=== PATIENT | female | born 1995 | race Caucasian/White ===

== ENCOUNTER 2016-12-18 17:18 | Outpatient (CLI) | payer BC, OTHER ==
[2016-12-18 17:55] LABS: APPEARANCE,URINE SLIGHTLY-CLOUDY; BILIRUBIN,URINE NEGATIVE (NEGATIVE); GLUCOSE, URINE NEGATIVE (NEGATIVE); KETONES,URINE TRACE mg/dL (NEGATIVE); LEUKOCYTE ESTERASE,URINE TRACE (NEGATIVE); NITRITE,URINE NEGATIVE (NEGATIVE); PROTEIN,URINE NEGATIVE (NEGATIVE); URINE SPECIFIC GRAVITY 1.018; UROBILINOGEN,URINE NEGATIVE mg/dL (<2.0)
[2016-12-18 18:13] LABS: URINE BARBITURATES SCREEN NEGATIVE; URINE METHADONE SCREEN NEGATIVE; URINE OPIATES LOW NEGATIVE; URINE PHENCYCLIDINE SCREEN NEGATIVE
== END 2016-12-18 18:44 | disposition home or self-care (01) ==
LOC: LC 17:18
PROVIDERS: ATTEND Obstetrics & Gynecology
DX: O26.893 Other specified pregnancy related conditions, third trimester (principal); R10.9 Unspecified abdominal pain; M54.9 Dorsalgia, unspecified; Z3A.29 29 weeks gestation of pregnancy
CPT/HCPCS: 80307; 81001

== ENCOUNTER 2017-02-20 19:57 | Outpatient (CLI) | payer BC, OTHER ==
[2017-02-20 20:37] LABS: APPEARANCE,URINE CLEAR; BILIRUBIN,URINE NEGATIVE (NEGATIVE); GLUCOSE, URINE NEGATIVE (NEGATIVE); KETONES,URINE NEGATIVE (NEGATIVE); LEUKOCYTE ESTERASE,URINE NEGATIVE (NEGATIVE); NITRITE,URINE NEGATIVE (NEGATIVE); PROTEIN,URINE NEGATIVE (NEGATIVE); URINE SPECIFIC GRAVITY 1.002; UROBILINOGEN,URINE NEGATIVE mg/dL (<2.0)
[2017-02-20 21:18] LABS: URINE BARBITURATES SCREEN NEGATIVE; URINE METHADONE SCREEN NEGATIVE; URINE OPIATES LOW NEGATIVE; URINE PHENCYCLIDINE SCREEN NEGATIVE
--- NOTE | 2017-02-20 21:31 | Non Stress Test Report ---
Non Stress Test Datetime Report Generated by CPN: 02/20/2017 21:31 DEMOGRAPHIC Test Number: 1 EGA NST: 37.2 INDICATION Indication for Study: Ordered by Provider MONITORING Monitor Explained: Monitor Explained; Test Explained; Patient Verbalized Understanding Time on Monitor: 02/20/2017 20:20 Time off Monitor: 02/20/2017 21:17 NST Duration: 57 NST INTERVENTIONS NST Interventions: PO Hydration Physician Notified NST: Dr. Cortez BABY A: [id number] Movement : Present Contraction Frequency : irregular FHR Baseline : 120 Accelerations : 15X15 Decelerations : None Variability : Moderate 6-25bpm NST Review: Meets Criteria for Reactive NST NST Review and Verified By : FRANCHESCA KwokT Results: Reactive NST REPORT Report Trigger: Send Report
== END 2017-02-20 21:25 | disposition home or self-care (01) ==
LOC: LC 19:57
PROVIDERS: ATTEND Student in an Organized Health Care Education/Training Program
PROC: 4A1HXCZ Monitoring of Products of Conception, Cardiac Rate, External Approach (ICD-10-PCS; principal; 2017-02-20)
DX: O47.1 False labor at or after 37 completed weeks of gestation (principal); Z3A.37 37 weeks gestation of pregnancy
CPT/HCPCS: 59025; 80307; 81005

== ENCOUNTER 2017-02-22 09:59 | Outpatient (CLI) | payer BC, OTHER ==
--- NOTE | 2017-02-22 10:41 | Non Stress Test Report ---
Non Stress Test Datetime Report Generated by CPN: 02/22/2017 10:40 DEMOGRAPHIC EGA NST: 37.4 INDICATION Indication for Study: Ordered by Provider Indication for Study (NST) Other: nst VITAL SIGNS Temperature - NST: 98.3 MONITORING Monitor Explained: Monitor Explained; Test Explained; Patient Verbalized Understanding Time on Monitor: 02/22/2017 10:09 Time off Monitor: 02/22/2017 10:33 NST Duration: 24 NST INTERVENTIONS NST Interventions: PO Hydration; Reposition Patient BABY A: [id number] BABY A Movement : Present Contraction Frequency : 0 FHR Baseline : 140 Accelerations : 15X15 Decelerations : None Variability : Moderate 6-25bpm NST Review: Meets Criteria for Reactive NST NST Review and Verified By : Lm Morales RNC NST Results: Reactive NST REPORT Report Trigger: Send Report
== END 2017-02-22 10:30 | disposition home or self-care (01) ==
LOC: LC 09:59
PROVIDERS: ATTEND Student in an Organized Health Care Education/Training Program
PROC: 4A1HXCZ Monitoring of Products of Conception, Cardiac Rate, External Approach (ICD-10-PCS; principal; 2017-02-22)
DX: Z34.93 Encounter for supervision of normal pregnancy, unspecified, third trimester (principal); Z36 Encounter for antenatal screening of mother; Z3A.37 37 weeks gestation of pregnancy
CPT/HCPCS: 59025

== ENCOUNTER 2017-03-06 20:37 | Outpatient (CLI) | payer BC, OTHER ==
[2017-03-06 21:10] LABS: APPEARANCE,URINE CLEAR; BILIRUBIN,URINE NEGATIVE (NEGATIVE); GLUCOSE, URINE NEGATIVE (NEGATIVE); KETONES,URINE NEGATIVE (NEGATIVE); LEUKOCYTE ESTERASE,URINE TRACE (NEGATIVE); NITRITE,URINE NEGATIVE (NEGATIVE); PROTEIN,URINE NEGATIVE (NEGATIVE); URINE SPECIFIC GRAVITY 1.004; UROBILINOGEN,URINE NEGATIVE mg/dL (<2.0)
[2017-03-06 21:31] LABS: URINE BARBITURATES SCREEN NEGATIVE; URINE METHADONE SCREEN NEGATIVE; URINE OPIATES LOW NEGATIVE; URINE PHENCYCLIDINE SCREEN NEGATIVE
[2017-03-06] MEDS ORDERED: HYDROXYZINE PAMOATE 50 MG CAPSULE ONE (22:18)
--- NOTE | 2017-03-06 22:47 | Non Stress Test Report ---
Non Stress Test Datetime Report Generated by CPN: 03/06/2017 22:47 DEMOGRAPHIC EGA NST: 39.2 INDICATION Indication for Study: Other Indication for Study (NST) Other: LC MONITORING Monitor Explained: Monitor Explained; Test Explained; Patient Verbalized Understanding Time on Monitor: 03/06/2017 20:56 Time off Monitor: 03/06/2017 21:26 NST Duration: 30 NST INTERVENTIONS NST Interventions: PO Hydration; Reposition Patient Physician Notified NST: Dr Neilsen BABY A: [id number] BABY A Movement : Present Contraction Frequency : 7-11 FHR Baseline : 140 Accelerations : 15X15 Decelerations : None Variability : Moderate 6-25bpm NST Review: Meets Criteria for Reactive NST NST Review and Verified By : FRANCHESCA Carlson Results: Reactive NST REPORT Report Trigger: Send Report
== END 2017-03-06 22:24 | disposition home or self-care (01) ==
LOC: LC 20:37
PROVIDERS: ATTEND Specialist
DX: O47.1 False labor at or after 37 completed weeks of gestation (principal); Z3A.39 39 weeks gestation of pregnancy
CPT/HCPCS: 80307; 81005

== ENCOUNTER 2017-03-08 17:26 | Inpatient (IN) | payer BC, OTHER ==
[2017-03-08] MEDS ORDERED: DINOPROSTONE 10 MG VAGINAL INSERT.SR PV PRN (17:48)
[2017-03-08] MEDS ORDERED: RINGERS SOLUTION,LACTATED 1,000 ML IV PRN (17:48)
[2017-03-08] MEDS ORDERED: RINGERS SOLUTION,LACTATED 300 ML IV ONE (17:48)
[2017-03-08] MEDS ORDERED: OXYTOCIN/NORMAL SALINE 1,000 ML IV PRN (17:48)
[2017-03-08 18:24] LABS: ABSOLUTE EOSINOPHILS # (AUTO) 0.1 10^3/uL (0.0-0.6); ABSOLUTE LYMPHOCYTES (AUTO) 1.6 10^3/uL (0.5-4.7); ABSOLUTE MONOCYTES (AUTO) 1.2 10^3/uL (0.1-1.4); ABSOLUTE NEUT (AUTO) 11.9 10^3/uL (1.7-8.2); BASOPHILS % (AUTO) 0.1 % (0-2); EOSINOPHILS % (AUTO) 0.5 % (0-6); HEMATOCRIT 33.4 % (36.0-47.0); HEMOGLOBIN 11.1 g/dL (12.0-15.5); HGB HCT DIFFERENCE -0.1; LYMPHOCYTES % (AUTO) 10.9 % (13-45); MEAN CORPUSCULAR HEMOGLOBIN 30.6 pg (27.0-33.4); MEAN CORPUSCULAR HGB CONC 33.2 g/dL (32.0-36.0); MEAN CORPUSCULAR VOLUME 92 fl (80-97); MONOCYTES % (AUTO) 8.2 % (3-13); RED BLOOD COUNT 3.62 10^6/uL (3.72-5.28); RED CELL DISTRIBUTION WIDTH 12.9 % (11.5-14.0); SEGMENTED NEUTROPHILS % (AUTO) 80.3 % (42-78); WHITE BLOOD COUNT 14.8 10^3/uL (4.0-10.5)
[2017-03-08 18:32] LABS: APPEARANCE,URINE SLIGHTLY-CLOUDY; BILIRUBIN,URINE NEGATIVE (NEGATIVE); GLUCOSE, URINE NEGATIVE (NEGATIVE); KETONES,URINE NEGATIVE (NEGATIVE); LEUKOCYTE ESTERASE,URINE SMALL (NEGATIVE); NITRITE,URINE NEGATIVE (NEGATIVE); PROTEIN,URINE NEGATIVE (NEGATIVE); URINE SPECIFIC GRAVITY 1.011; UROBILINOGEN,URINE NEGATIVE mg/dL (<2.0)
[2017-03-08] MEDS ORDERED: DINOPROSTONE 10 MG VAGINAL INSERT.SR ONE (18:32)
[2017-03-08 18:53] LABS: URINE BARBITURATES SCREEN NEGATIVE; URINE METHADONE SCREEN NEGATIVE; URINE OPIATES LOW NEGATIVE; URINE PHENCYCLIDINE SCREEN NEGATIVE
[2017-03-08] MEDS ORDERED: ZOLPIDEM TARTRATE 5 MG TABLET ONE (22:18)
[2017-03-08] MEDS ORDERED: ZOLPIDEM TARTRATE 5 MG TABLET PO ONE (22:30)
[2017-03-09] MEDS ORDERED: NALBUPHINE HCL INJ 10 MG/1 ML AMPULE INJ ONE (02:13)
[2017-03-09] MEDS ORDERED: PROMETHAZINE HCL INJ 25 MG/1 ML VIAL IV ONE (02:13)
[2017-03-09] MEDS ORDERED: PROMETHAZINE HCL INJ 25 MG/1 ML VIAL ONE (02:19)
[2017-03-09] MEDS ORDERED: NALBUPHINE HCL INJ 10 MG/1 ML AMPULE ONE (02:19)
[2017-03-09] MEDS ORDERED: MISOPROSTOL 0.2 MG TABLET ONE (04:30)
[2017-03-09] MEDS ORDERED: OXYTOCIN/NORMAL SALINE 20 UNIT/1,000 ML RTUINJ ONE (04:30)
[2017-03-09] MEDS ORDERED: LIDOCAINE 1% INJ-PF (10 MG/ML) 30 ML SDV ONE (04:30)
[2017-03-09] MEDS ORDERED: FENTANYL/BUPIVACAINE/NS/PF 200 MCG/100 ML RTUINJ EPI ONE (04:31)
[2017-03-09] MEDS ORDERED: EPHEDRINE SULFATE INJ 50 MG/1 ML AMPULE ONE (04:31)
[2017-03-09] MEDS ORDERED: BUPIVACAINE HCL 0.25 % INJ/PF (2.5 MG/1 ML) 30 ML VIAL ONE (04:31)
[2017-03-09] MEDS ORDERED: BUPIVACAINE HCL 0.25 % INJ/PF (2.5 MG/1 ML) 30 ML VIAL INFIL ONE (06:25)
[2017-03-09] MEDS ORDERED: EPHEDRINE SULFATE INJ 50 MG/1 ML AMPULE IV PRN (06:25)
[2017-03-09] MEDS ORDERED: EPHEDRINE SULFATE INJ 50 MG/1 ML AMPULE IV ONE (06:25)
[2017-03-09] MEDS ORDERED: FENTANYL/BUPIVACAINE/NS/PF 100 ML EPI PRN (06:25)
[2017-03-09] MEDS ORDERED: BENZOIN/ALOE VERA/STORAX/TOLU TINCTURE 60 ML TP PRN (06:25)
[2017-03-09] MEDS ORDERED: MEASLES,MUMPS&RUBELLA VACC/PF 0.5 ML VIAL SUBCUT PRN (10:34)
[2017-03-09] MEDS ORDERED: DIBUCAINE 1% OINTMENT 28 GM TP PRN (10:34)
[2017-03-09] MEDS ORDERED: ACETAMINOPHEN WITH CODEINE #3 TABLET PO PRN ×2 (10:34)
[2017-03-09] MEDS ORDERED: OXYTOCIN/NORMAL SALINE 1,000 ML IV PRN (10:34)
[2017-03-09] MEDS ORDERED: ZOLPIDEM TARTRATE 5 MG TABLET PO PRN (10:34)
[2017-03-09] MEDS ORDERED: BENZOCAINE/MENTHOL AEROSOL SPRAY 56 ML TOP PRN (10:34)
[2017-03-09] MEDS ORDERED: DIPH/PERTUSS(ACELL)/TETANUS VAC/PF 0.5 ML SYR (>=10YO) IM PRN (10:34)
--- NOTE | 2017-03-09 12:15 | Admission Physical ---
Datetime Report Generated by CPN: 03/09/2017 12:15 CURRENT ADMISSION Chief Complaint: Scheduled Induction of Labor Indication for Induction: Maternal Diabetes Admit Plan: Admit to Unit; Initiate Labor Induction Protocol ALLERGIES Medication Allergies: No Medication Allergies: No Known Allergies (03/06/2017) Medication Allergies: No Known Allergies (02/20/2017) Medication Allergies: nkda Latex: No Latex Allergies Food Allergies: no Environmental Allergies: seasonal OBSTETRICAL HISTORY EDC: 03/11/2017 00:00 : 1 Para: 0 Term: 0 : 0 SAB: 0 IAB: 0 Ectopic: 0 Livin Cesareans: 0 VBACs: 0 Multiple Births: 0 Gestational Diabetes: Yes Rh Sensitization: No Incompetent Cervix: No IAN: No Infertility: No ART Treatment: No Uterine Anomaly: No IUGR: No Hx Previous C/S: No Macrosomia: No Hx Loss/Stillborn: No PIH: No Hx : No Placenta Previa/Abruption: No Depression/PP Depression: No PTL/PROM: No Post Hemorrhage: No Current Procedures: Ultrasound; NST Obstetrical History Comments: G1-Current, GDM SEE RECORDS Alcohol: No Marijuana : No Cocaine: No Other Illicit Drugs: No Cigarettes: Never Smoker. 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 Surgery: No Heart Disease: No Hosp/Surgery: Yes Autoimmune Disorder: No Anesthetic Complications: No Kidney Disease: No Abnormal Pap Smear: No Neuro/Epilepsy: No Psychiatric Disorders: No Other Medical Diseases: No Hepatitis/Liver Disease: No Significant Family History: No Varicosities/Phlebitis: No Trauma/Violence : No Thyroid Dysfunction: No Medical History Comments: Left carpal tunnel release; Discectomy L7-S1; T_A INFECTIOUS HISTORY Gonorrhea: No Genital Herpes: No Chlamydia: No Tuberculosis: No Syphilis: No Hepatitis: No HIV/AIDS Exposure: No Rash or Viral Illness: No HPV: No PHYSICAL EXAM General: Normal HEENT: Normal Neurologic: Normal Thyroid: Normal Heart: Normal Lungs: Normal Breast: Normal Back: Normal Abdomen: Normal Genitourinary Exam: Normal Extremities: Normal DTRs: Normal Pelvic Type: Adequate Vital Signs: Reviewed VAGINAL EXAM Dilatation: 1 Effacement: 25 Station: -3 MEMBRANES Pooling: Negative Membranes: Intact FETUS A EGA: 39.5 Monitoring: External US FHR- Baseline: 130 Variability: Moderate 6-25bpm Accelerations: 15X15 Decelerations: None Estimated Weight (gm): 3900 Presentation: Vertex PLANS FOR LABOR AND DELIVERY Labor and Delivery: None Pain Management: Epidural Feeding Preference: Formula Benefit of Breast Feed Discussed: Yes Circumcision: Yes INFORMED CONSENT Signature: with User ID: Joan
[2017-03-09] MEDS: IBUPROFEN 800 MG TABLET PO SCH ×2 (13:06→22:16)
[2017-03-09] MEDS: DOCUSATE SODIUM 100 MG CAPSULE PO SCH (17:19)
[2017-03-09] MEDS: FERROUS SULFATE 325 MG TABLET PO SCH (17:19)
[2017-03-10] MEDS: IBUPROFEN 800 MG TABLET PO SCH ×3 (06:04→21:30)
[2017-03-10 07:26] LABS: HEMATOCRIT 26.9 % (36.0-47.0); HGB HCT DIFFERENCE -0.2; MEAN CORPUSCULAR HGB CONC 32.9 g/dL (32.0-36.0); MEAN CORPUSCULAR VOLUME 91 fl (80-97); RED BLOOD COUNT 2.95 10^6/uL (3.72-5.28)
[2017-03-10 07:33] LABS: HEMOGLOBIN 8.9 g/dL (12.0-15.5)
--- NOTE | 2017-03-10 08:35 | PDOC PROGRESS REPORT ---
Subjective-OB Subjective: Post Delivery Day: 1 24 year old. Denies any needs at this time, lochia is stable, pain well controlled, voiding without difficulty. Physical Exam (OB) Vital Signs: Temp Pulse Resp BP Pulse Ox 98.1 F 90 17 102/66 100 03/10/17 07:37 03/10/17 07:37 03/10/17 07:37 03/10/17 07:37 03/10/17 07:37 Intake & Output 03/09/17 03/10/17 03/11/17 06:59 06:59 06:59 Weight 77.35 kg - Lochia Lochia Amount: Scant < 10 ml Lochia Color: Rubra/Red - Abdomen Description: Tender, Soft, Round Hernia Present: No Fundal Description: Firm, Midline Fundal Height: u/u - u/2 Objective-Diagnostic Laboratory: 03/10/17 07:02 03/10/17 07:02 WBC 17.0 H RBC 2.95 L Hgb 8.9 L D Hct 26.9 L MCV 91 MCH 30.0 MCHC 32.9 RDW 13.0 Plt Count 165 Assessment and Plan(PN) - Assessment and Plan (1) Vaginal delivery Is this a current diagnosis for this admission?: YesPlan: routine pp care (2) Acute blood loss anemia Is this a current diagnosis for this admission?: YesPlan: ferrous sulfate increase dietary iron - Time Spent with Patient Time with patient: Less than 15 minutes Critical Time spent with patient: Less than 15 minutes Medications reviewed and adjusted accordingly: Yes - Disposition Anticipated Discharge: Home Within: within 24 hours
[2017-03-10] MEDS: PRENATAL VITAMIN W-O CA NO5/FE FUMARATE/FA CAPSULE PO SCH (10:30)
[2017-03-10] MEDS: FERROUS SULFATE 325 MG TABLET PO SCH ×2 (10:30→17:08)
[2017-03-10] MEDS: SENNOSIDES/DOCUSATE 8.6-50 MG 1 EACH TABLET PO SCH (10:31)
[2017-03-10] MEDS: DOCUSATE SODIUM 100 MG CAPSULE PO SCH ×2 (10:31→17:08)
[2017-03-11] MEDS: IBUPROFEN 800 MG TABLET PO SCH (05:18)
[2017-03-11 08:29] VITALS: BP 107/61
--- NOTE | 2017-03-11 08:49 | PDOC DISCHARGE SUMMARY ---
Final Diagnosis Discharge Date: 03/11/17 - Final Diagnosis (1) Vaginal delivery Is this a current diagnosis for this admission?: Yes (2) Acute blood loss anemia Is this a current diagnosis for this admission?: Yes Discharge Data - Discharge Medication Home Medications: Vit/Iron Fumarate/FA [ Tablet] 1 tab PO DAILY 02/20/17 Docusate Sodium [Colace 100 mg Capsule] 100 mg PO BID #60 capsule 03/11/17 Ferrous Sulfate [Feosol 325 mg Tablet] 325 mg PO BID #60 tablet 03/11/17 Ibuprofen [Motrin 800 mg Tablet] 800 mg PO Q8 #60 tablet 03/11/17 Gestational Age: 39 Reason(s) for Admission: Induction of Labor, Gestional Diabetes Procedures: PRINT CUTTER Intrapartum Procedure(s): Spontaneous Vaginal Delivery Complication(s): Laceration-Perineal Laceration-Degree: 2nd - Data Baby 1 Male at 1 minute: 9 at 5 minutes: 9 Weight: 3.402 kg Home with Mother: No Complications: Yes - Diagnosis Test Laboratory: Temp Pulse Resp BP Pulse Ox 97.6 F 80 16 107/61 100 03/11/17 08:26 03/11/17 08:26 03/11/17 08:26 03/11/17 08:26 03/11/17 08:26 03/08/17 03/08/17 03/10/17 17:45 17:51 07:02 RBC 3.62 L 2.95 L Hgb 11.1 L 8.9 L D Hct 33.4 L 26.9 L Urine Opiates Screen NEGATIVE - Discharge information/Instructions Discharge Activity: Activity As Tolerated, No Lifting Over 10 Pounds, Pelvic Rest, No tub bath Discharge Diet: Regular Disposition: HOME, SELF-CARE Follow up with: [facility] in: 4, Weeks
[2017-03-11] MEDS: FERROUS SULFATE 325 MG TABLET PO SCH (09:19)
[2017-03-11] MEDS: PRENATAL VITAMIN W-O CA NO5/FE FUMARATE/FA CAPSULE PO SCH (09:19)
[2017-03-11] MEDS: SENNOSIDES/DOCUSATE 8.6-50 MG 1 EACH TABLET PO SCH (09:19)
[2017-03-11] MEDS: DOCUSATE SODIUM 100 MG CAPSULE PO SCH (09:19)
--- NOTE | 2017-03-14 15:38 | Delivery Summary ---
Del Sum A-C Datetime Report Generated by CPN: 03/14/2017 15:38 DELIVERY PERSONNEL DELIVERY PERSONNEL: [phone] DELIVERY PERSONNEL: [phone] DELIVERY PERSONNEL: [phone] DELIVERY PERSONNEL: [phone] Delivery Doctor:: Carline Jamil CNM Nurse Parquetry Floor Layer Certified:: Carline Jamil CNM (Annotations: Data stored by CPN on behalf of user) Labor and Delivery Nurse:: Urmila Sanz RNkeypunch operator Nurse:: HEATHER Thomas (Annotations: Data stored by CPN on behalf of user) Nursery Nurse:: Genesis Pruitt RN (Annotations: Data stored by CPN on behalf of user) Nursery Nurse:: Rebecca Lindsey RN [place]/PEDIATRIC LICENSED PRACTICAL NURSE: Shira Powell CNA II [place]/PEDIATRIC LICENSED PRACTICAL NURSE: Lisha Arechiga ST MATERNAL INFORMATION Delivery Anesthesia: Epidural Medications After Delivery: Pitocin Bolus-Please Comment Meds After Delivery Comment: Pitocin 20 units in 1 L NS bolusing per order Estimated Blood Loss (ml): 400 Maternal Complications: None Provider Comments: of viable male infant over 1st degree lac. head delivered without difficulty, loose nuchal X2, reduced, shoulders and body delivered without diffiuclty. with spontaneous cry and respirations. To maternal abdomen, cord clamped X 2, cut free by pts . Spontaneous delivery of placenta via callahan mechanism, appears intact, 3 vc. Uterus initially boggy, firm with massage, rectal cytotec given with IV pitocin. Repair as above, mother and baby in stable condition, routine pp care. LABOR SUMMARY EDC: 03/11/2017 00:00 No. Babies in Womb: 1 Attempted: No Labor Anesthesia: Epidural LABOR INFORMATION Reason for Induction: Maternal Diabetes Onset of Labor: 03/09/2017 02:05 Complete Dilatation: 03/09/2017 08:49 Cervical Ripening Agents: Cervidil Oxytocin: Induction Group B Beta Strep: Negative Antibiotics # of Doses: 0 Antibiotics Time of Last Dose: n/a Name of Antibiotic Given: n/a Steroids Given: None Reason Steroids Not Administered: Not Applicable MEMBRANES Membranes Rupture Method: Spontaneous Rupture of Membranes: 03/09/2017 01:30 Length of Rupture (hr): 8.22 Amniotic Fluid Color: Clear Amniotic Fluid Amount: Small Amniotic Fluid Odor: Normal STAGES OF LABOR Stage 1 hr: 6 Stage 1 min: 44 Stage 2 hr: 0 Stage 2 min: 54 Stage 3 hr: 0 Stage 3 min: 4 Total Time in Labor hr: 7 Total Time in Labor min: 42 VAGINAL DELIVERY Episiotomy: None Laceration Extension: First Degree Laceration Type: Perineal Laceration Repair: Yes Laceration Repair Note: repaired with 2-0 chromic using epidural for anesthesia Sponge Count Correct: Yes Sharps Count Correct: Yes CSECTION DELIVERY Primary Indication: N/A Secondary Indication: N/A CSection Incidence: N/A Labor: N/A Elective: N/A CSection Incision: N/A BABY A INFORMATION Infant Delivery Date/Time: 03/09/2017 09:43 Method of Delivery: Vaginal Method of Delivery: Vaginal Born in Route : No : N/A Forceps: N/A Vacuum Extraction: N/A Shoulder Dystocia : No PRESENTATION/POSITION BABY A Presentation: Breech Cephalic Presentation: Vertex Vertex Position: Right Occipital Anterior Breech Presentation: N/A PLACENTA INFORMATION BABY A Placenta Delivery Time : 03/09/2017 09:47 Placenta Method of Delivery: Expressed Placenta Status: Delivered SCORES BABY A Heart Rate 1 min: >100 bpm Resp Effort 1 min: Good Cry Reflex Irritability 1 min: Cough or Sneeze or Pulls Away Muscle Tone 1 min: Active Motion Color 1 min: Body [place], Extremities Blue Resuscitation Effort 1 min: Tactile Stimulation SCORE 1 MIN: 9 Heart Rate 5 min: >100 bpm Resp Effort 5 min: Good Cry Reflex Irritability 5 min: Cough or Sneeze or Pulls Away Muscle Tone 5 min: Active Motion Color 5 min: Body [place], Extremities Blue Resuscitation Effort 5 min: N/A SCORE 5 MIN: 9 Resuscitation Effort 10 min: N/A INFANT INFORMATION BABY A Gestational Age at Delivery: 39.5 Gestational Status: Full Term- 39- 40.6 Weeks Infant Outcome : Liveborn Infant Condition : Stable Infant Sex: Male Sex: Male IDENTIFICATION BABY A Verification Date/Time: 03/09/2017 09:48 ID Band Number: [id number] Mother's Name Verified: Yes RN Verifying Infant: Alberto Romero RNC Additional Verifying Personnel: Jaylon Stubbs ARCHITECTURAL ASSOCIATE WEIGHT/LENGTH BABY A Infant Birthweight (gm): 3390 Infant Weight (lb): 7 Weight (oz): 8 Infant Length (in): 19.25 Infant Length (cm): 48.90 CORD INFORMATION BABY A No. Cord Vessels: 3 Nuchal Cord : Around Neck x2, Loose Cord Blood Taken: Yes-For Storage (Mom's Blood type +) Suction: None ASSESSMENT BABY A Complications: None Physical Findings at Delivery: Caput Succedaneum; Molding of the Head Respirations: Appears Normal Skin to Skin: Yes Skin to Skin: Yes Skin to Skin Time (min): 60 Abrasive Coating Machine Operator/ALS Called : No Care By: Kemar Pruitt RN/ Jakob Fortune RN Transferred To: Remains with Mother BABY B INFORMATION : N/A SIGNATURES Assignment: Bashir Rosales DO Signature: with User ID: Constantino : with User ID: [email or web address]
== END 2017-03-11 09:50 | disposition home or self-care (01) | DRG 775 ==
LOC: LR 17:26 → 2S 03-09 12:13
PROVIDERS: ADMIT Obstetrics & Gynecology; ATTEND Obstetrics & Gynecology
PROC: 4A1HXCZ Monitoring of Products of Conception, Cardiac Rate, External Approach (ICD-10-PCS; 2017-03-08)
PROC: 10E0XZZ Delivery of Products of Conception, External Approach (ICD-10-PCS; principal; 2017-03-09)
PROC: 0KQM0ZZ Repair Perineum Muscle, Open Approach (ICD-10-PCS; 2017-03-09)
PROC: 3E033VJ Introduction of Other Hormone into Peripheral Vein, Percutaneous Approach (ICD-10-PCS; 2017-03-09)
DX: O69.81X0 Labor and delivery complicated by cord around neck, without compression, not applicable or unspecified (principal); D62 Acute posthemorrhagic anemia; O24.429 Gestational diabetes mellitus in childbirth, unspecified control; O99.02 Anemia complicating childbirth; O70.1 Second degree perineal laceration during delivery; Z3A.39 39 weeks gestation of pregnancy; Z37.0 Single live birth
CPT/HCPCS: 36415; 80307; 81005; 85025; 85027; 86592; 86850; 86900; 86901; J2300; J2550; J2590; J3490